=== PATIENT | male | born 1955 | race Caucasian/White ===

== ENCOUNTER 2016-12-20 09:48 | Emergency (ER) | payer OTHER ==
[~2016-12-20] VITALS: Ht 167.6 cm; Wt 88.0 kg
[~2016-12-20 09:48] MED LIST: CIAL20TA PO; EMPA1TAB PO; GLUCTAB OR; OMEP20CA5 PO; PRAV40TA PO; TAB-TAB PO
[2016-12-20 09:59] VITALS: BP 135/71; PULSE 73; RESP 17; TEMP 97.9; O2SAT 98
[2016-12-20] MEDS ORDERED: PRAV40TA PO (10:09)
[2016-12-20] MEDS ORDERED: CIAL20TA PO (10:09)
[2016-12-20] MEDS ORDERED: METF-382 PO (10:09)
[2016-12-20] MEDS ORDERED: EMPA1TAB PO (10:09)
[2016-12-20] MEDS ORDERED: OMEP20TA PO (10:09)
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
[2016-12-20] MEDS ORDERED: IBUPROFEN 400 MG TAB PO ONE (10:30)
--- NOTE | 2016-12-20 10:52 | RADRPT ---
EXAM DATE/TIME: 12/20/2016 10:38 [facility] COMPARISON: No previous studies available for comparison. INDICATIONS : Left lateral ankle pain & swelling after stepping into hole MEDICAL HISTORY : Gastroesophageal reflux disease. Carcinoma, prostatic. SURGICAL HISTORY : Cholecystectomy. Inguinal hernia repair. ENCOUNTER: Initial ACUITY: 1 day PAIN SCORE: 5/10 LOCATION: Left lateral ankle FINDINGS: Three view exam was performed of the left ankle. Significant soft tissue swelling is identified along the lateral aspect of the ankle. The bony structures and ankle mortise are intact. Hindfoot is well aligned. CONCLUSION: Lateral soft tissue swelling without evidence of fracture or dislocation. Ifeanyi Blanco MD on December 20, 2016 at 10:49 Board Certified Radiologist. This report was verified electronically.
[2016-12-20] MEDS ORDERED: IBUP400T20 PO (10:57)
== END 2016-12-20 11:28 | disposition home or self-care (01) ==
LOC: PHEFT 09:48
DX: S93.402A Sprain of unspecified ligament of left ankle, initial encounter (principal); W17.2XXA Fall into hole, initial encounter; Y93.H9 Activity, other involving exterior property and land maintenance, building and construction; E11.9 Type 2 diabetes mellitus without complications; K21.9 Gastro-esophageal reflux disease without esophagitis; Z85.46 Personal history of malignant neoplasm of prostate
CPT/HCPCS: 73610; 99283